=== PATIENT | male | born 1965 | race Caucasian/White ===

== ENCOUNTER → 2016-10-03 | Outpatient (CLI) | payer BC ==
[~2016-10-03] MED LIST: CANA300T; CEPH500C2 PO; FLUT15.88; GLIM1TAB2 PO; LISI-621 PO; LOVA40TA2 PO; METO50TA5 PO; MILK200C4; MULT-933 PO; OMEG500C7; OMEP-122 PO; P-EP-93 PO; PIOG30TA27; PRED20TA PO
--- NOTE | 2016-10-04 08:31 | DI ---
Indication: ITS.REASON: LBP M54.41 WITH SCIATICA PROCEDURE: MRI LUMBAR SPINE W/O CONTRAST: Encounter: Initial Comparison: None Technique: Multiplanar multisequence MR imaging of the lumbar spine was performed without contrast. Findings: Alignment of the lumbar spine shows grade 2 spondylolisthesis of L5 on S1. No acute fracture identified. Vertebral body heights are maintained. Conus medullaris terminates normally at L1. Paraspinal soft tissues are unremarkable. Segmental analysis: L1-L2: Normal L2-L3: Mild disk desiccation and height loss without focal protrusion, central canal or neural foraminal stenosis. L3-L4: Minimal central bulging without central canal stenosis. No neural foraminal narrowing. L4-L5: No focal protrusion or central canal stenosis. Degenerative facet disease contributing to mild bilateral neural foraminal stenosis. L5-S1: Bilateral L5 spondylolysis with spondylolisthesis results in uncovering of the disk but no central canal stenosis. Severe bilateral neural foraminal stenosis with impingement on the exiting L5 nerve roots, greater on the right. Impression: Grade 2 spondylolisthesis of L5 on S1 with nerve root impingement. .
== END ==
LOC: IMA 18:35
PROVIDERS: ATTEND Family Medicine
DX: M54.41 Lumbago with sciatica, right side (principal); M43.17 Spondylolisthesis, lumbosacral region